=== PATIENT | female | born 1955 | race Caucasian/White ===

== ENCOUNTER 2018-02-02 14:28 | Emergency (ER) | END 2018-02-02 17:39 | disposition home or self-care (01) ==

== ENCOUNTER 2018-05-14 12:12 | Inpatient (IN) | END 2018-05-20 14:15 | disposition home or self-care (01) | DRG 390 ==

== ENCOUNTER 2019-02-18 14:07 | Emergency (ER) | payer MEDICARE, OTHER ==
[~2019-02-18] VITALS: Ht 154.9 cm; Wt 80.9 kg
[~2019-02-18 14:07] MED LIST: CITA10TA10 PO; ERGO2000 PO; OMEP20CA16 PO; PANT40TA3 PO; SULF1TAB31 PO; VITAMIN D PO
[2019-02-18 14:12] VITALS: Ht 154.9 cm; Wt 80.9 kg
[2019-02-18] MEDS ORDERED: FAMOTIDINE 20 MG INJ IV ONE (15:00)
[2019-02-18] MEDS ORDERED: LIDOCAINE/MYLANTA 40 ML BTL PO ONE (15:00)
[2019-02-18 16:01] VITALS: BP 139/67; PULSE 60; RESP 16
== END 2019-02-18 16:01 | disposition home or self-care (01) ==
LOC: E/R 14:07
DX: N39.0 Urinary tract infection, site not specified (principal)
CPT/HCPCS: 36415; 80053; 81003; 83690; 85025; 93005; 96374